=== PATIENT | male | born 1985 | race Hispanic/Latino ===

== ENCOUNTER 2025-04-02 20:42 | Emergency (ER) | payer SELFPAY ==
[2025-04-02 21:14] LABS: #Basophils 0.04 10x3/uL (0.0-0.2); #Eosinophils Less than 0.03 10x3/uL (0.0-0.7); #Monocytes 0.47 10x3/uL (0.11-0.59); #Neutrophils 2.82 10x3/uL (1.40-6.50); %Basophils 0.7 % (0.0-1.0); %Eosinophils 0.2 % (0.0-10.0); %Lymphocytes 43.7 % (21.0-51.0); %Monocytes 7.9 % (0.0-10.0); %Neutrophils 47.2 % (42.0-75.0); Hematocrit 43.4 % (42.0-52.0); Hemoglobin 15.3 g/dL (14.0-18.0); Mean Corpuscular Hemoglobin 28.6 pg (27.0-31.0); Mean Corpuscular Volume 81.1 fL (78.0-98.0); Platelet Count 215 10x3/uL (130-400); Red Blood Cell (RBC) Count 5.35 mill/uL (4.70-6.10); White Blood Cell (WBC) Count 5.97 10x3/uL (4.8-10.8)
[2025-04-02 21:38] LABS: Acetaminophen Less than 10 mcg/mL (Less than 10); Lipase 25 U/L (8-78); Magnesium 2.3 mg/dL (1.6-2.6); Salicylate Less than 8.0 mg/dL (Less than 8.0)
[2025-04-02 21:42] LABS: ALT (SGPT) 37 U/L (Less than 45); AST (SGOT) 41 U/L (11-34); Albumin 4.4 g/dL (3.1-4.5); Alkaline Phosphatase 94 U/L (40-110); Anion Gap 18 mmol/L (10-20); BUN (Urea Nitrogen) 5 mg/dL (8.9-20.6); Bilirubin, Total 0.7 mg/dL (0.3-1.2); CK (CPK) 945 U/L (30-200); Calc. Creatinine Clearance 0 mL/min (70-130); Calcium 8.6 mg/dL (7.8-10.44); Carbon Dioxide 21 mmol/L (22-29); Chloride 106 mmol/L (98-107); Globulin 3.3 g/dL (2.4-3.5); Glucose 134 mg/dL (70-105); Potassium 3.3 mmol/L (3.5-5.1); Sodium 142 mmol/L (136-145)
[2025-04-02 22:37] LABS: Bacteria/HPF None Seen HPF (None Seen); CAUTI Indications for Culture Dysuria,urgency,freq; Glucose, Urine (Dipstick) Normal (Negative); Leukocyte Negative Leu/uL (Negative); Protein, Urine (Dipstick) Negative (Neg-Trace); RBC/HPF None Seen HPF (0-3); Specific Gravity, Urine 1.006 (1.002-1.036); WBC/HPF 0-3 HPF (0-3)
[2025-04-02 22:44] LABS: Cocaine Metabolite Screen Negative (Negative); THC/Cannabinoid Screen Negative (Negative); Tricyclic Screen Negative (Negative)
[2025-04-02 23:19] LABS: Urine Culture Reflex No No
[2025-04-02] MEDS ORDERED: Ondansetron PF 4 MG/2 ML Vial ONE (23:28)
[2025-04-03] MEDS ORDERED: Ondansetron PF 4 MG/2 ML Vial ONE (01:05)
== END 2025-04-03 01:08 | disposition home or self-care (01) ==
LOC: ERS 20:42
DX: F10.129 Alcohol abuse with intoxication, unspecified (principal); Y90.8 Blood alcohol level of 240 mg/100 ml or more
CPT/HCPCS: 80053; 80306; 80307; 81001; 82550; 83690; 83735; 84484; 85025; 93005; 96374; 96376; J2405; Q0162